=== PATIENT | female | born 1950 | race Caucasian/White ===

== ENCOUNTER 2019-11-14 08:52 | Emergency (ER) | payer MEDICARE, OTHER ==
[2019-11-14 09:05] VITALS: RESP 18; TEMP 98.2
--- NOTE | 2019-11-14 09:27 | ED ---
Arrhythmia/Palpitations HPI - General Chief Complaint: Arrhythmia/Palpitations Stated Complaint: Heart palpations Time Seen by Provider: 11/14/19 09:07 Source: patient, RN notes reviewed Mode of arrival: ambulatory Limitations: no limitations - History of Present Illness Initial Comments: This is a 69-year-old female with a history of anxiety and thyroid cancer with thyroidectomy who states she had the onset earlier this morning of a jolt in her lower anterior chest wall area. She thought was her heart. He states it's recurred several times no fevers chills nausea vomiting sweats with it. She does admit to being very anxious she has 8 children and 20 grandchildren and some great-grandchildren. One of her sons going through divorce I daughter who is a dentist is at her house right now with a large dog is making her very anxious and she does now like to have a dirty house. No recent illnesses no cough or cold fevers chills sweats nausea vomiting or other symptoms reported no focal weakness. Patient was tearful during part of the evaluation. MD Complaint: palpitations - Related Data Home Medications Medication Instructions Recorded Confirmed Bone Nutrient Essential Oils 1 dose PO DAILY 02/16/15 02/28/15 Cholecalciferol [Vitamin D3 (25 5,000 unit PO DAILY 02/16/15 02/28/15 Mcg = 1000 Iu)] Famotidine [Pepcid] 20 mg PO HS 02/16/15 02/28/15 Levothyroxine Sodium [Synthroid] 137 mcg PO DAILY 02/16/15 02/28/15 Magnesium 200 mg PO DAILY 02/16/15 02/28/15 Multivitamins, Thera [Multivitamin 1 tab PO DAILY 02/16/15 02/28/15 (formulary)] Potassium 99 mg PO DAILY 02/16/15 02/28/15 Ubiquinol [Co-Veratrol] 100 mg PO DAILY 02/16/15 02/28/15 Folic Acid 0.8 mg PO DAILY 02/28/15 02/28/15 Previous Rx's Medication Instructions Recorded Aspirin 325 mg PO BID #60 tab 02/28/15 Celecoxib [CeleBREX] 200 mg PO BID #30 capsule 02/28/15 Famotidine [Pepcid] 20 mg PO DAILY #30 tablet 03/01/15 traMADol HCl [Ultram] 50 mg PO Q6H PRN #60 tab 03/01/15 Ibuprofen [Motrin] 600 mg PO Q6HR PRN #20 tab 11/14/19 Allergies Allergy/AdvReac Type Severity Reaction Status Date / Time No Known Allergies Allergy Verified 11/14/19 09:05 Review of Systems ROS Statement: Those systems with pertinent positive or pertinent negative responses have been documented in the HPI. ROS Other: All systems not noted in ROS Statement are negative. Past Medical History Past Medical History: Cancer, Osteoarthritis (OA), Thyroid Disorder Additional Past Medical History / Comment(s): HX OF THYROID CANCER (2007) WITH RADIATION TX, SCOLIOSIS. History of Any Multi-Drug Resistant Organisms: None Reported Past Surgical History: Breast Surgery, Joint Replacement, Orthopedic Surgery Additional Past Surgical History / Comment(s): 02-28-15 TOTAL RT KNEE ARTHROPLASTY LEFT KNEE ARTHROSCOPIC,THYROID SURGERY,TUMMY TUCK, BREAST REDUCTION, TOTAL LEFT KNEE REPLACEMENT Past Anesthesia/Blood Transfusion Reactions: Motion Sickness, Postoperative Nausea & Vomiting (PONV) Past Psychological History: No Psychological Hx Reported Smoking Status: Never smoker Past Alcohol Use History: Occasional Past Drug Use History: None Reported - Past Family History Mother Family Medical History: Deep Vein Thrombosis (DVT) Additional Family Medical History / Comment(s): POSSIBLE OF BLOOD CLOT AFTER FX . General Exam - General Exam Comments Initial Comments: This is a well-developed well-nourished awake alert oriented 3 female Limitations: no limitations General appearance: alert, anxious Head exam: Present: atraumatic, normocephalic, normal inspection Eye exam: Present: normal appearance, PERRL, EOMI. Absent: scleral icterus, conjunctival injection, periorbital swelling ENT exam: Present: normal exam, mucous membranes moist Neck exam: Present: normal inspection, full ROM, other (No stridor JVD or bruits a well-healed anterior scar consistent with thyroid surgery). Absent: tende rness, meningismus, lymphadenopathy Respiratory exam: Present: normal lung sounds bilaterally. Absent: respiratory distress, wheezes, rales, rhonchi, stridor Cardiovascular Exam: Present: regular rate, normal rhythm, normal heart sounds. Absent: systolic murmur, diastolic murmur, rubs, gallop, clicks GI/Abdominal exam: Present: soft, normal bowel sounds. Absent: distended, tenderness, guarding, rebound, rigid Extremities exam: Present: normal inspection, full ROM, normal capillary refill. Absent: tenderness, pedal edema, joint swelling, calf tenderness Back exam: Present: normal inspection Neurological exam: Present: alert, oriented X3, CN II-XII intact Psychiatric exam: Present: normal affect, anxious Skin exam: Present: warm, dry, intact, normal color. Absent: rash Course Vital Signs 11/14/19 11/14/19 11/14/19 09:01 09:10 09:30 Temperature 98.2 F Pulse Rate 71 79 Pulse Rate [ 70 Custom Applicator ] Respiratory 18 18 Rate Blood Pressure 146/97 158/92 O2 Sat by Pulse 98 98 Oximetry 11/14/19 10:31 Temperature Pulse Rate 63 Pulse Rate [ Custom Applicator ] Respiratory 18 Rate Blood Pressure 115/90 O2 Sat by Pulse 98 Oximetry EKG Findings - EKG Results: EKG: interpreted by ERIN, sinus rhythm (Sinus rhythm a 64. Ago 180 QRS duration 86 QT since QTC 394/46 pulses criteria for LVH noted. This is compared with EKG dated 11/04/2007 showing very similar configuration.) Medical Decision Making - Medical Decision Making I did discuss findings the patient and her . Patient will be discharged the presentation is consistent with chest wall pain she's had no evidence of PVCs PACs or irregularity during her time here. The workup is otherwise negative I did recommend NSAIDs and follow-up with her doctor. She is in agreement with this. - Lab Data Result diagrams: 11/14/19 09:15 11/14/19 09:15 Lab Results 11/14/19 11/14/19 11/14/19 Range/Units 09:15 09:15 09:15 WBC 7.2 (3.8-10.6) k/uL RBC 4.85 (3.80-5.40) m/uL Hgb 15.3 (11.4-16.0) gm/dL Hct 44.2 (34.0-46.0) % MCV 91.1 (80.0-100.0) fL MCH 31.5 (25.0-35.0) pg MCHC 34.6 (31.0-37.0) g/dL RDW 13.3 (11.5-15.5) % Plt Count 215 (150-450) k/uL Neutrophils % 67 % Lymphocytes % 23 % Monocytes % 5 % Eosinophils % 2 % Basophils % 0 % Neutrophils # 4.8 (1.3-7.7) k/uL Lymphocytes # 1.7 (1.0-4.8) k/uL Monocytes # 0.4 (0-1.0) k/uL Eosinophils # 0.1 (0-0.7) k/uL Basophils # 0.0 (0-0.2) k/uL PT 9.7 (9.0-12.0) sec INR 0.9 (<1.2) APTT 24.5 (22.0-30.0) sec D-Dimer 0.64 H (<0.60) mg/L FEU Sodium 141 (137-145) mmol/L Potassium 4.2 (3.5-5.1) mmol/L Chloride 108 H (98-107) mmol/L Carbon Dioxide 24 (22-30) mmol/L Anion Gap 9 mmol/L BUN 16 (7-17) mg/dL Creatinine 0.71 (0.52-1.04) mg/dL Est GFR (CKD-EPI)AfAm >90 (>60 ml/min/1.73 sqM) Est GFR (CKD-EPI)NonAf 88 (>60 ml/min/1.73 sqM) Glucose 102 H (74-99) mg/dL Calcium 9.4 (8.4-10.2) mg/dL Magnesium 1.7 (1.6-2.3) mg/dL Total Bilirubin 0.5 (0.2-1.3) mg/dL AST 28 (14-36) U/L ALT 29 (4-34) U/L Alkaline Phosphatase 61 (38-126) U/L Creatine Kinase 67 (30-135) U/L Troponin I (0.000-0.034) ng/mL Total Protein 7.1 (6.3-8.2) g/dL Albumin 4.4 (3.5-5.0) g/dL TSH 1.600 (0.465-4.680) mIU/L 11/14/19 Range/Units 09:15 WBC (3.8-10.6) k/uL RBC (3.80-5.40) m/uL Hgb (11.4-16.0) gm/dL Hct (34.0-46.0) % MCV (80.0-100.0) fL MCH (25.0-35.0) pg MCHC (31.0-37.0) g/dL RDW (11.5-15.5) % Plt Count (150-450) k/uL Neutrophils % % Lymphocytes % % Monocytes % % Eosinophils % % Basophils % % Neutrophils # (1.3-7.7) k/uL Lymphocytes # (1.0-4.8) k/uL Monocytes # (0-1.0) k/uL Eosinophils # (0-0.7) k/uL Basophils # (0-0.2) k/uL PT (9.0-12.0) sec INR (<1.2) APTT (22.0-30.0) sec D-Dimer (<0.60) mg/L FEU Sodium (137-145) mmol/L Potassium (3.5-5.1) mmol/L Chloride (98-107) mmol/L Carbon Dioxide (22-30) mmol/L Anion Gap mmol/L BUN (7-17) mg/dL Creatinine (0.52-1.04) mg/dL Est GFR (CKD-EPI)AfAm (>60 ml/min/1.73 sqM) Est GFR (CKD-EPI)NonAf (>60 ml/min/1.73 sqM) Glucose (74-99) mg/dL Calcium (8.4-10.2) mg/dL Magnesium (1.6-2.3) mg/dL Total Bilirubin (0.2-1.3) mg/dL AST (14-36) U/L ALT (4-34) U/L Alkaline Phosphatase (38-126) U/L Creatine Kinase (30-135) U/L Troponin I <0.012 (0.000-0.034) ng/mL Total Protein (6.3-8.2) g/dL Albumin (3.5-5.0) g/dL TSH (0.465-4.680) mIU/L - Radiology Data Radiology results: report reviewed (I did review the imaging and report no evidence of acute PE some evidence of possible alveolar edema), image reviewed Disposition Clinical Impression: Chest wall pain, Atypical chest pain Disposition: HOME SELF-CARE Condition: Good Instructions (If sedation given, give patient instructions): Chest Wall Pain (ED) Additional Instructions: Medication prescription sent to the preferred pharmacy Prescriptions: Ibuprofen [Motrin] 600 mg PO Q6HR PRN #20 tab PRN Reason: Pain Is patient prescribed a controlled substance at d/c from ED?: No Referrals: Jared Nj MD [Primary Care Provider] - 1-2 days
[2019-11-14 09:32] LABS: Basophils % (A) 0 %; Eosinophils # (A) 0.1 k/uL (0-0.7); Eosinophils % (A) 2 %; HCT 44.2 % (34.0-46.0); HGB 15.3 gm/dL (11.4-16.0); Lymphocytes # (A) 1.7 k/uL (1.0-4.8); Lymphocytes % (A) 23 %; MCH 31.5 pg (25.0-35.0); MCHC 34.6 g/dL (31.0-37.0); MCV 91.1 fL (80.0-100.0); Mean Platelet Volume 7.3; Monocytes # (A) 0.4 k/uL (0-1.0); Monocytes % (A) 5 %; Neutrophils # (A) 4.8 k/uL (1.3-7.7); Neutrophils % (A) 67 %; Platelet Count 215 k/uL (150-450); RBC 4.85 m/uL (3.80-5.40); RDW 13.3 % (11.5-15.5); WBC 7.2 k/uL (3.8-10.6)
--- NOTE | 2019-11-14 09:35 | XR ---
EXAMINATION TYPE: XR chest 2V DATE OF EXAM: 11/14/2019 COMPARISON: NONE HISTORY: Dysrhythmia. TECHNIQUE: Frontal and lateral views of the chest are obtained. FINDINGS: Overlying EKG leads. There is some chronic parenchymal changes bilaterally without suspicio us focal air space opacity, pleural effusion, or pneumothorax seen. The cardiac silhouette size is w ithin normal limits with atherosclerotic and slightly ectatic thoracic aorta. The osseous structure s are somewhat demineralized. IMPRESSION: Chronic changes without acute pulmonary process.
[2019-11-14 09:46] LABS: ALT 29 U/L (4-34); AST 28 U/L (14-36); African American GFR (CKD) >90 (>60 ml/min/1.73 sqM); Albumin 4.4 g/dL (3.5-5.0); Alkaline Phosphatase 61 U/L (38-126); Anion Gap 9 mmol/L; Blood Urea Nitrogen 16 mg/dL (7-17); Calcium 9.4 mg/dL (8.4-10.2); Carbon Dioxide 24 mmol/L (22-30); Chloride 108 mmol/L (98-107); Creatine Kinase 67 U/L (30-135); Glucose 102 mg/dL (74-99); Magnesium 1.7 mg/dL (1.6-2.3); Non-African American GFR(CKD) 88 (>60 ml/min/1.73 sqM); Potassium 4.2 mmol/L (3.5-5.1); Sodium 141 mmol/L (137-145); Total Bilirubin 0.5 mg/dL (0.2-1.3); Total Protein 7.1 g/dL (6.3-8.2)
[2019-11-14 09:53] LABS: INR 0.9 (<1.2); Prothrombin Time 9.7 sec (9.0-12.0)
[2019-11-14 09:54] LABS: Partial Thromboplastin Time 24.5 sec (22.0-30.0)
[2019-11-14 10:42] LABS: D-Dimer 0.64 mg/L FEU (<0.60)
--- NOTE | 2019-11-14 11:39 | CT ---
EXAMINATION TYPE: CT angio chest DATE OF EXAM: 11/14/2019 COMPARISON: Chest x-ray earlier today HISTORY: PE suspected. Arrhythmia and shortness of breath. CT DLP: 393.2 mGycm. Automated Exposure Control for Dose Reduction was Utilized. CONTRAST: CTA scan of the thorax is performed without and with IV Contrast, patient injected with 100 ml mL of Isovue 370, pulmonary embolism protocol. MIP Images are created on CT scanner and reviewed. FINDINGS: LUNGS: Dependent atelectasis bilateral lower lobes. Areas of diffuse increased opacity favor mild und erlying alveolar edema bilaterally. No suspicious focal consolidation. There is no pleural effusion or pneumothorax seen bilaterally. No suspicious nodules or masses. The tracheobronchial tree is lobato nt. MEDIASTINUM: There is satisfactory enhancement of the pulmonary artery and its branches, there is no CT evidence for pulmonary embolism. There are no greater than 1 cm hilar or mediastinal lymph nodes. Mild cardiomegaly. No Pericardial effusion is seen. Main pulmonary artery measures 2.8 cm in diamete r axial image 48. Adjacent ascending aorta measures up to 3.6 cm in diameter. Satisfactory opacificat ion of aorta without dissection. OTHER: Prominent partially exophytic 6.4 cm thin-walled cyst in the anterior left hepatic lobe with s maller cyst anterior hepatic dome on image 57 noted. [id number] multilevel spurring in the thor acic spine with slight scoliotic curvature. Tiny dependent gallstone on last axial image. IMPRESSION: 1. No CT evidence for acute pulmonary embolism. 2. Suspect CHF exacerbation and there is mild cardiomegaly with mild alveolar edema seen bilaterally, correlate clinically.
[2019-11-14 12:13] VITALS: BP 125/77; PULSE 65
== END 2019-11-14 12:14 | disposition home or self-care (01) ==
LOC: EC 08:52
DX: R07.89 Other chest pain (principal); R00.2 Palpitations; E07.9 Disorder of thyroid, unspecified; M19.90 Unspecified osteoarthritis, unspecified site; Z79.890 Hormone replacement therapy; Z79.899 Other long term (current) drug therapy; Z85.850 Personal history of malignant neoplasm of thyroid; Z96.653 Presence of artificial knee joint, bilateral; Z92.3 Personal history of irradiation
CPT/HCPCS: 36415; 93005; 85379; 80053; 82550; 83735; 84443; 84484; 85025; 85610; 85730; 71046; 71275; 99285; Q9967

== ENCOUNTER 2023-12-18 05:35 | Day surgery (SDC) | payer MEDICARE, OTHER ==
--- NOTE | 2023-12-16 09:53 | P.HPOR ---
History of Present Illness H&P Date: 12/16/23 Subjective: This is a 73 year old female that presents today for follow up evaluation regarding several year history of progressively worsening left base of the thumb pain as well as numbness and tingling in the thumb, index and middle fingers. In the past she has had several thumb CMC steroid injections performed by Dr. Bennett with little relief. She also states she underwent an EMG in the last year that revealed moderate carpal tunnel syndrome on the left side. She has a hi story of an open carpal tunnel release performed under local anesthetic with Dr. Bennett. She has to often assist her with daily activities due to a history of Alzheimer's but for the most part he is functioning independently but she worries in the future she may have to rely more on the left hand but cannot due to pain at the thumb. She states she has pain and discomfort at the base of the thumb on a daily basis as well as numbness and tingling that occurs also on daily basis. Physical Examination: LUE: AIN/PIN/Radial/Ulnar/Median motor intact. Radial/Ulnar/Median SILT. 2+/4 Radial/Ulnar pulses palpated. 5/5 APB, 5/5 FDI. Negative Finkelsteins, Positive CMC grind, positive Durkan's compression. RUE: AIN/PIN/Radial/Ulnar/Median motor intact. Radial/Ulnar/Median SILT. 2+/4 Radial/Ulnar pulses palpated. 5/5 APB, 5/5 FDI. Negative Finkelsteins, negative CMC grind, negative Durkan's compression. Imaging: X-Rays of the left hand 3V taken in office today demonstrate severe thumb CMC arthritis, severe STT arthritis. X-Rays of the right hand 3V taken at prior office from 05/09 demonstrate severe thumb CMC arthritis, severe. Impression: 1.) B/L thumb CMC arthritis, severe 2.) Left STT arthritis Plan: Diagnosis and treatment options were discussed with the patient. She has failed conservative treatment and would like to proceed with a left thumb CMC joint arthroplasty, left partial trapezoid excision for her STT arthritis and an endoscopic versus open carpal tunnel release on the left side. Risks and benefits of surgery including bleeding, infection, damage to surrounding tissue, need for further surgery, possible need to convert to open procedure, residual numbness were discussed and the patient wished to go forward with surgery.The patient was agreeable with this plan. CC: Jethro Bolaños MD -Enrique Edmondson DO Orthopedic Hand/Upper Extremity Surgeon Past Medical History Past Medical History: Cancer, Osteoarthritis (OA), Thyroid Disorder Additional Past Medical History / Comment(s): HX OF THYROID CANCER (2007) WITH RADIATION [place], SCOLIOSIS. History of Any Multi-Drug Resistant Organisms: None Reported Past Surgical History: Breast Surgery, Joint Replacement, Orthopedic Surgery Additional Past Surgical History / Comment(s): 02-28-15 TOTAL RT KNEE ARTHROPLASTY LEFT KNEE ARTHROSCOPIC,THYROID SURGERY,TUMMY TUCK, BREAST REDUCTION, TOTAL LEFT KNEE REPLACEMENT Past Anesthesia/Blood Transfusion Reactions: Motion Sickness, Postoperative Nausea & Vomiting (PONV) Past Psychological History: No Psychological Hx Reported Past Alcohol Use History: Occasional Past Drug Use History: None Reported - Past Family History Mother Family Medical History: Deep Vein Thrombosis (DVT) Additional Family Medical History / Comment(s): POSSIBLE OF BLOOD CLOT AFTER FX . Medications and Allergies Home Medications Medication Instructions Recorded Confirmed Type Bone Nutrient Essential Oils 1 dose PO DAILY 02/16/15 02/28/15 History Cholecalciferol [Vitamin D3 (25 5,000 unit PO DAILY 02/16/15 02/28/15 History Mcg = 1000 Iu)] Famotidine [Pepcid] 20 mg PO HS 02/16/15 02/28/15 History Levothyroxine Sodium [Synthroid] 137 mcg PO DAILY 02/16/15 02/28/15 History Magnesium 200 mg PO DAILY 02/16/15 02/28/15 History Multivitamins, Thera [Multivitamin 1 tab PO DAILY 02/16/15 02/28/15 History (formulary)] Potassium 99 mg PO DAILY 02/16/15 02/28/15 History Ubiquinol [Co-Veratrol] 100 mg PO DAILY 02/16/15 02/28/15 History Aspirin 325 mg PO BID #60 tab 02/28/15 Rx Celecoxib [CeleBREX] 200 mg PO BID #30 capsule 02/28/15 Rx Folic Acid 0.8 mg PO DAILY 02/28/15 02/28/15 History Famotidine [Pepcid] 20 mg PO DAILY #30 tablet 03/01/15 Rx traMADol HCl [Ultram] 50 mg PO Q6H PRN #60 tab 03/01/15 Rx Ibuprofen [Motrin] 600 mg PO Q6HR PRN #20 tab 11/14/19 Rx Allergies Allergy/AdvReac Type Severity Reaction Status Date / Time No Known Allergies Allergy Verified 11/14/19 09:05 Physical Examination Osteopathic Statement: *. No significant issues noted on an osteopathic structural exam other than those noted in the History and Physical/Consult.
[2023-12-18] MEDS: IV FLUID CONTINUATION 1,000 ML IV ONE ×2 (06:15→09:20)
[2023-12-18] MEDS: LACTATED RINGERS 1,000 ML IV SCH (06:35)
[2023-12-18] MEDS: ONDANSETRON 4 MG/2 ML VIAL IVP ONE (06:45)
[2023-12-18] MEDS: DEXAMETHASONE SOD PHOSPHATE 4 MG/ML 1 ML VIAL IVP STA (06:45)
[2023-12-18] MEDS: MIDAZOLAM 2 MG/2 ML VIAL IVP ONE (06:49)
[2023-12-18] MEDS ORDERED: HYDROmorphone 0.5 MG/0.5 ML SYRINGE IVP PRN (07:00)
[2023-12-18] MEDS ORDERED: PROPOFOL 10 MG/ML 20 ML VIAL IV ONE (07:24)
[2023-12-18] MEDS ORDERED: PHENYLEPHRINE-0.9% NACL SYG 1,000 MCG/10 ML SYRINGE ONE (07:24)
[2023-12-18] MEDS ORDERED: fentaNYL (PF) 50 MCG/ML 2 ML AMP ONE (07:24)
[2023-12-18] MEDS ORDERED: LIDOCAINE 1% INJ 10MG/ML (20 ML MDV) ONE (07:24)
[2023-12-18] MEDS ORDERED: ePHEDrine 50 MG/ML 1 ML VIAL ONE (07:24)
[2023-12-18] MEDS ORDERED: WATER FOR INJECTION, STERILE 10 ML VIAL IV ONE (07:24)
[2023-12-18] MEDS ORDERED: ROPIVACAINE 5 MG/ML 30 ML VIAL ONE (07:24)
[2023-12-18] MEDS ORDERED: DEXAMETHASONE SOD PHOSPHATE 4 MG/ML 1 ML VIAL ONE (07:24)
--- NOTE | 2023-12-18 08:42 | P.OP ---
Date of Procedure: 12/18/23 Preoperative Diagnosis: 1.) Left thumb CMC arthritis 2.) Left carpal tunnel syndrome 3.) Left wrist STT arthritis Postoperative Diagnosis: 1.) Left thumb CMC arthritis 2.) Left carpal tunnel syndrome 3.) Left wrist STT arthritis Procedure(s) Performed: 1.) Left thumb CMC basilar joint arthroplasty 2.) Left endoscopic carpal tunnel release 3.) Left wrist partial trapezoid excision (carpectomy) of trapezoid bone for STT arthritis Implants: Arthrex 3.5mm Swivel Lock Suture anchor x2 Anesthesia: regional Surgeon: Enrique Edmondson Aging Box Hand #1: Stephen Denny Estimated Blood Loss (ml): 5 Pathology: none sent Condition: stable Disposition: PACU Description of Procedure: This is a 73 year old female who presents today for a left thumb CMC basal joint arthroplasty after having failed conservative treatment for severe thumb CMC arthritis as well as a partial trapezoid excision for severe STT arthritis and a endoscopic carpal tunnel release for carpal tunnel syndrome that has failed conservative treatement. Risks and benefits of surgery were discussed with the patient including bleeding, damage to surrounding tissue, infection, need for further surgery as well as risks of anesthesia including pulmonary embolism and even and the patient wished to proceed with surgical intervention. The patients was seen in the pre-operative area by myself. Consent and H&P were completed and updated. The correct extremity was marked in the pre-operative area by myself and all other questions were answered. Patient received a upper extremity nerve block by the department of anesthesia. He then was brought to the operating room by the department of anesthesia. They remained on the portable stretcher and a rolling hand table was brought to the side of the operative extremity. The patient was then drifted off to sleep by the department of anesthesia. A nonsterile tourniquet was then applied to the operative extremity and the left upper extremity was then prepped and draped in normal sterile fashion. Pre-operative time out was performed indicating the correct patient, procedure and laterality. All in the room agreed. Pre-operative antibiotics were given prior to skin incision. The operative extremity was the exsanguinated with an esmarch bandage and the tourniquet was inflated to 250mmHg. 15 blade scalpel was utilized to make a transverse incision on the palmar skin just ulnar to the palmaris longus tendon at the level of the distal wrist crease. Ragnell retractor was then placed radially and blunt dissection was performed to reveal the distal forearm fascia. This was lifted with fine Christian pick ups and Littler tenotomy scissors were then used to open the forearm fascia transversely and a double skin hook was then placed. Hamate finder was placed into the carpal tunnel and then sequential sized dilators were inserted followed by the synovial elevator to separate the flexor tenosynovium from the undersurface of the transverse carpal ligament and a washboard texture was felt. The Nodejitsue endoscopic carpal tunnel release system gun was the then inserted into the carpal tunnel hugging the deep portion of the transverse carpal ligament in line with the base of the ring finger. Transverse fibers of the ligament were directly visualized. Pressure was applied on the palm to reveal the distal extent of the transverse carpal ligament. The blade was then deployed and the distal half of the transverse carpal ligament was released. The scope was then brought distal again and remaining transverse fibers were incised with the blade. The proximal half of the transverse carpal ligament was then divided and again the scope was advanced distal and remaining transverse fibers were incised with the blade. The radial and ulnar leaflets were directly visualized and mobile consistent with complete release. Tenotomy scissors were then utilized to release the remaining distal forearm fascia under direct visualization taking care to preserve the palmar cutaneous branch of the median nerve. Longitudinal incision was made over the left thumb CMC joint with a 15 blade scalpel. Blunt dissection was taken down to subcutaneous tissues with littler scissors taking care to preserve the branches of the superficial radial nerve. Dorsal radial artery was identified proximally in the incision and protected throughout the procedure. Scalpel was then made to incise the thumb CMC joint creating full thickness flaps off of the proximal metacarpal base and trapezium, this plane was further developed with a periosteal elevator. Elevator was then utilized to identify the thumb CMC joint and scaphotrapezial joint. McGlamory elevator was then used to excise the trapezium whole. After trapezium excision, there were severe arthritic changes present at the scaphotrapezoid joint consistent with patients imaging. An osteotome was used to resected the proximal 1/2 of the trapezoid in an oblique fashion. After partial excision of the trapezoid the wrist was ranged and no contact was appreciated between the scaphoid and trapezoid in radial deviation or wrist flexion. Guidewire was then introduced down to the laser line at the base of the first metacarpal through the same incision and was over drilled. Another guidewire was then inserted at the radial base of the first metacarpal near the Insertion of APL and was then over drilled with normal drill guide. A 3.5mm Arthrex SwiveLock anchor was then inserted into the base of the first metacarpal. While holding the thumb in slight traction and full adduction, another 3.5mm Arthrex SwiveLock anchor was inserted into the base of the second metacarpal and the two strands of fibertape were centered across the first metacarpal base to create a sling around the base suspending the thumb metacarpal, good gregory purchase was appreciated. The thumb was successfully suspended and full ROM was achieved passively. Suture ends were cut and skin was closed with several interrupted 4-0 Monocryl sutures followed by a running 5-0 Monocryl stitch. Sterile dressing consisting of steri strips followed by 4x4s cast padding, and a thumb spica plaster splint was applied. Tourniquet was let down and the hand had brisk cap refill and normal perfusion immediately. The patient was then woken by the department of anesthesia and transferred to PACU in stable condition. Stephen SHARPE was present for the case and assisted in major portions of procedure and protection of vital neurovascular structures. Enrique Edmondson D.O. Orthopedic Hand/Upper Extremity Surgeon
[2023-12-18 09:00] VITALS: TEMP 97.3
[2023-12-18 09:09] VITALS: RESP 18
[2023-12-18 09:49] VITALS: BP 117/80; PULSE 67
--- NOTE | 2023-12-18 19:40 | P.ANPRN ---
Procedure Note - Anesthesia - Nerve Block Performed Left Supraclavicular Single Time Out Performed: Yes Date of Procedure: 12/18/23 Procedure Start Time: 06:48 Procedure Stop Time: 06:51 Location of Patient: PreOp Indication: Acute Post-Operative Pain, Requested by Surgeon Sedation Type: Sedate with meaningful contact maintained Preparation: Sterile Prep Position: Supine Needle Types: Pajunk Needle Gauge: 21 Ultrasound used to visualize needle placement: Yes Ultrasound used to observe medication spread: Yes Blood Aspirated: No Pain Paresthesia on Injection Noted: No Resistance on Injection: Normal Image Stored and Saved: Yes Events: Uneventful and Well Tolerated (Ropivacaine 0.5% 20 cc plus dexamethasone 4 mg)
== END 2023-12-18 10:16 | disposition home or self-care (01) ==
LOC: OR 05:35
PROVIDERS: ATTEND Orthopaedic Surgery Hand Surgery
DX: M18.12 Unilateral primary osteoarthritis of first carpometacarpal joint, left hand (principal); G56.02 Carpal tunnel syndrome, left upper limb; G89.18 Other acute postprocedural pain; E07.9 Disorder of thyroid, unspecified; M41.9 Scoliosis, unspecified; F10.90 Alcohol use, unspecified, uncomplicated; Z79.890 Hormone replacement therapy; Z85.850 Personal history of malignant neoplasm of thyroid; Z79.899 Other long term (current) drug therapy
CPT/HCPCS: 64415; 25447; 29848; C1713; J2250; J1100; J0690; J2405; J2001; J3010; J2795; J2704; J2371